=== PATIENT | male | born 1945 | race Caucasian/White ===

== ENCOUNTER 2017-02-27 12:36 | Emergency (ER) | payer MEDICARE ==
[~2017-02-27] VITALS: Ht 182.9 cm; Wt 97.0 kg
[~2017-02-27 12:36] MED LIST: ASPI81TA82 PO; COQ130CA4 PO; FISHCAP; LISI-360 PO; SIMV20 PO; TERA2CAP3 PO
[2017-02-27 13:00] VITALS: BP 169/85; PULSE 99; RESP 20; TEMP 98.5; O2SAT 97
[2017-02-27] MEDS ORDERED: ASPI81CH CHEW (13:14)
[2017-02-27] MEDS ORDERED: SIMV10TA PO (13:14)
[2017-02-27] MEDS ORDERED: TERA2CAP3 PO (13:14)
[2017-02-27] MEDS ORDERED: LISI10TA3 PO (13:14)
[2017-02-27] MEDS ORDERED: ONDANSETRON HCL 4 MG/2 ML VIAL IM ONE (13:30)
[2017-02-27] MEDS ORDERED: HYDROmorphone HCL PF 1 MG/ML VIAL IM ONE (13:30)
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
[2017-02-27] MEDS ORDERED: ceFAZolin 2 GM PREMIX 50 ML IV ONE (13:45)
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
[2017-02-27] MEDS ORDERED: LIDOCAINE 2%/EPINEPHrine 1:100,000 30ML MDV INFIL ONE (14:45)
[2017-02-27] MEDS ORDERED: LIDOCAINE 2%/EPINEPHrine PF 1:200,000 20ML SDV INFIL ONE (15:00)
[2017-02-27] MEDS ORDERED: HYDROmorphone HCL PF 1 MG/ML VIAL IV PUSH ONE (15:45)
[2017-02-27] MEDS ORDERED: LIDOCAINE HCL 1% 50 ML VIAL INFIL ONE (15:45)
[2017-02-27 16:01] VITALS: BP 158/88; PULSE 72; RESP 16; O2SAT 100
[2017-02-27] MEDS ORDERED: HYDR-3533 PO (17:06)
== END 2017-02-27 17:35 | disposition home or self-care (01) ==
LOC: PHED 12:36
DX: S68.114A Complete traumatic metacarpophalangeal amputation of right ring finger, initial encounter (principal); X58.XXXA Exposure to other specified factors, initial encounter; Y93.18 Activity, surfing, windsurfing and boogie boarding; Y92.832 Beach as the place of occurrence of the external cause; I10 Essential (primary) hypertension; E78.00 Pure hypercholesterolemia, unspecified
CPT/HCPCS: 73140; 96372; 96374; 99284; J0690; J1170; J2405